=== PATIENT | female | born 1995 | race Two or more races ===

== ENCOUNTER 2019-03-23 11:19 | Emergency (ER) | payer OTHER ==
[~2019-03-23] VITALS: Ht 167.6 cm; Wt 56.7 kg
[2019-03-23 11:38] VITALS: BP 125/76
--- NOTE | 2019-03-23 12:48 | NUR ---
PATIENT LEFT W/O BEING SEEN BY
--- NOTE | 2019-03-23 13:00 | NUR ---
Mireya colon in [facility] - 03/23/19 at 1301 by COLETTE CALLED IN WAITING ROOM , NO ANSWER
== END 2019-03-23 13:05 | disposition left against medical advice (07) ==
LOC: ER 11:25
DX: F10.10 Alcohol abuse, uncomplicated (principal); F41.9 Anxiety disorder, unspecified; F31.9 Bipolar disorder, unspecified; Z53.21 Procedure and treatment not carried out due to patient leaving prior to being seen by health care provider